=== PATIENT | female | born 1975 | race Caucasian/White ===

== ENCOUNTER 2020-12-30 22:45 | Emergency (ER) | payer SELFPAY ==
[~2020-12-30] VITALS: Ht 175.3 cm; Wt 74.9 kg
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
[2020-12-30] MEDS ORDERED: IV RINGERS SOLUTION,LACTATED 1,000 ML IV SCH (23:30)
--- NOTE | 2020-12-30 23:44 | EKG ---
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
[2020-12-31 00:08] LABS: BASO % 1 % (0-3); EOS % 0 % (0-3); HEMATOCRIT 36.2 % (36.0-47.0); HEMOGLOBIN 12.1 g/dL (12.0-15.5); LYMPH # 1.1 x10^3/uL (1.0-4.8); LYMPH % 15 % (24-48); MEAN CORPUSCULAR HEMOGLOBIN 32 pg (25-35); MEAN CORPUSCULAR HGB CONC 33 g/dL (31-37); MEAN CORPUSCULAR VOLUME 96 fL (79-100); MONO # 0.7 x10^3/uL (0.0-1.1); MONO % 9 % (0-9); NEUT # 5.4 x10^3uL (1.8-7.7); NEUT % 75 % (31-73); PLATELET COUNT 334 x10^3/uL (140-400); RED BLOOD COUNT 3.77 x10^6/uL (3.50-5.40); WHITE BLOOD COUNT 7.3 x10^3/uL (4.0-11.0)
[2020-12-31 00:17] LABS: CALCIUM 9.2 mg/dL (8.5-10.1); CREATININE 1.4 mg/dL (0.6-1.0); GFR 40.7; POTASSIUM 3.4 mmol/L (3.5-5.1)
[2020-12-31 00:30] LABS: ALBUMIN 3.6 g/dL (3.4-5.0); DIRECT BILIRUBIN 0.6 mg/dL (0.0-0.2); MAGNESIUM 2.3 mg/dL (1.8-2.4); TOTAL BILIRUBIN 1.1 mg/dL (0.2-1.0); TOTAL PROTEIN 7.3 g/dL (6.4-8.2)
--- NOTE | 2020-12-31 01:15 | RAD ---
CT HEAD INDICATION: Altered mental status COMPARISON: None Available. Exposure: One or more of the following individualized dose reduction techniques were utilized for thi s examination: 1. Automated exposure control 2. Adjustment of the mA and/or kV according to patient size 3. Use of iterative reconstruction technique TECHNIQUE: 5 mm contiguous axial images were obtained from the skull base to the vertex in both bone and soft tissue algorithm. FINDINGS: No abnormal attenuation within the brain parenchyma. No evidence of acute intracranial hemorrhage. No extra-axial fluid collections. No mass effect or midline shift. Ventricular size is appropriate. Basal cisterns are patent. No fractures identified.Lentz-white differentiation is preserved.Globes and orbits are within normal l imits. Paranasal sinuses and mastoid air cells are clear. IMPRESSION: No acute intracranial findings. Electronically signed by: Ortiz Garcia MD (12/31/2020 1:13 AM) [id number]
[2020-12-31] MEDS ORDERED: CONTRAST GIVEN. MC PRN (01:45)
[2020-12-31] MEDS ORDERED: IOHEXOL 300 MG/ML 75 ML VIAL. IV ONE (02:00)
[2020-12-31 02:09] LABS: AMPHETAMINE/METHAMPHETAMINE NEG (NEG); BARBITURATES NEG (NEG); BENZODIAZEPINES NEG (NEG); CANNABINOIDS NEG (NEG); COCAINE NEG (NEG); METHADONE NEG (NEG); OPIATES NEG (NEG); PHENCYCLIDINE NEG (NEG)
[2020-12-31 02:14] LABS: CLARITY,URINE CLEAR; COLOR,URINE YELLOW
[2020-12-31 02:15] LABS: BILIRUBIN,URINE LARGE (NEG); GLUCOSE,URINE NEG (NEG)
[2020-12-31 02:16] LABS: BACTERIA,URINE FEW /HPF (0-FEW); NITRITE,URINE NEG (NEG); RBC,URINE 0 /HPF (0-2); SQUAMOUS EPITHELIAL CELL,UR FEW /LPF; WAXY CASTS,URINE OCC /HPF
[2020-12-31 02:18] LABS: YEAST,URINE PRESENT /HPF
--- NOTE | 2020-12-31 02:49 | RAD ---
Examination: CT chest abdomen pelvis with IV contrast HISTORY: History of contusion to the back, abdominal pain COMPARISON: None available TECHNIQUE: Axial CT images of the chest abdomen pelvis with IV contrast. Reduced dose IV contrast was used. Coronal and sagittal reformats are performed Exposure: One or more of the following individualized dose reduction techniques were utilized for thi s examination: 1. Automated exposure control 2. Adjustment of the mA and/or kV according to patient size 3. Use of iterative reconstruction technique. FINDINGS: The visualized thyroid gland grossly appears unremarkable. Central airways are patent. The heart size grossly appears unremarkable. Neurologically significant mediastinal lymphadenopathy. Mild bibasilar lung atelectasis. The liver, spleen, adrenals grossly appears unremarkable. The gallbladder is mildl y distended. The stomach is mildly distended. The small bowel is nondilated. Feces and gas noted in t he colon. Urinary bladder is mildly distended. The bilateral kidneys enhance symmetrically. There is moderate fluid density measuring 9.6 cm in CC dimension measuring 63 Hounsfield units with s urrounding fat stranding in the right lower back subcutaneous region likely hematoma. Mild degenerati ve changes thoracic and lumbar spine. IMPRESSION: 1. Moderate fluid density measuring 9.6 cm in CC dimension with surrounding fat stranding in the righ t lower back posteriorly subcutaneous region likely hematoma. Electronically signed by: Ortiz Garcia MD (12/31/2020 2:47 AM) [id number]
[2020-12-31 03:06] VITALS: BP 125/82
--- NOTE | 2020-12-31 03:13 | RAD ---
EXAM: CHEST 1 VIEW History: Tachycardia COMPARISON: None available. TECHNIQUE: Single portable radiograph of the chest FINDINGS: The cardiac silhouette is unremarkable. The lungs are clear bilaterally. The costophrenic sulci are clear and well demarcated. IMPRESSION: No radiographic evidence of an acute cardiopulmonary process. Electronically signed by: Ortiz Garcia MD (12/31/2020 3:11 AM) [id number]
== END 2020-12-31 06:54 | disposition home or self-care (01) ==
LOC: ER 22:45
DX: S80.02XA Contusion of left knee, initial encounter (principal); S80.01XA Contusion of right knee, initial encounter; S30.0XXA Contusion of lower back and pelvis, initial encounter; R41.82 Altered mental status, unspecified; R79.89 Other specified abnormal findings of blood chemistry; F41.9 Anxiety disorder, unspecified; F31.9 Bipolar disorder, unspecified; F20.9 Schizophrenia, unspecified; F19.10 Other psychoactive substance abuse, uncomplicated; F17.210 Nicotine dependence, cigarettes, uncomplicated; X58.XXXA Exposure to other specified factors, initial encounter; Y93.89 Activity, other specified; Y92.89 Other specified places as the place of occurrence of the external cause; Y99.8 Other external cause status
CPT/HCPCS: 36415; 70450; 71045; 71260; 74177; 80048; 80076; 80307; 81001; 82550; 83735; 83880; 84443; 84484; 84702; 85025; 85610; 85730; 93005; 96361; 96374; 99285; G0480; J2060; J7120; Q9967

== ENCOUNTER 2021-01-09 12:28 | Emergency (ER) | payer SELFPAY ==
[~2021-01-09] VITALS: Ht 167.6 cm; Wt 70.0 kg
[2021-01-09] MEDS ORDERED: NEOMY/BACITR/POLYMYXIN OINT PACKET. TP ONE (13:00)
[2021-01-09] MEDS ORDERED: LIDOCAINE 1%/EPI 1:100,000 20 ML VIAL. IJ ONE (13:00)
[2021-01-09] MEDS ORDERED: KETOROLAC 30 MG/ML VIAL. IM ONE (13:15)
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
[2021-01-09 14:20] VITALS: BP 138/72
== END 2021-01-09 14:20 | disposition home or self-care (01) ==
LOC: EEVIPCON 12:28 → ER 12:28
DX: S01.01XA Laceration without foreign body of scalp, initial encounter (principal); S05.12XA Contusion of eyeball and orbital tissues, left eye, initial encounter; S60.511A Abrasion of right hand, initial encounter; S80.212A Abrasion, left knee, initial encounter; F41.9 Anxiety disorder, unspecified; F31.9 Bipolar disorder, unspecified; F17.210 Nicotine dependence, cigarettes, uncomplicated; Y08.89XA Assault by other specified means, initial encounter; Y93.89 Activity, other specified; Y92.89 Other specified places as the place of occurrence of the external cause; Y99.8 Other external cause status
CPT/HCPCS: 12001; 70450; 72125; 96372; 99284; J1885

== ENCOUNTER 2021-01-10 20:18 | Emergency (ER) | payer SELFPAY ==
[~2021-01-10] VITALS: Ht 167.6 cm; Wt 70.0 kg
[2021-01-10 21:22] LABS: BASO # 0.1 x10^3/uL (0.0-0.2); BASO % 1 % (0-3); EOS # 0.1 x10^3/uL (0.0-0.7); EOS % 1 % (0-3); HEMATOCRIT 35.2 % (36.0-47.0); HEMOGLOBIN 11.7 g/dL (12.0-15.5); LYMPH # 1.5 x10^3/uL (1.0-4.8); LYMPH % 15 % (24-48); MEAN CORPUSCULAR HEMOGLOBIN 32 pg (25-35); MEAN CORPUSCULAR HGB CONC 33 g/dL (31-37); MEAN CORPUSCULAR VOLUME 95 fL (79-100); MONO # 0.9 x10^3/uL (0.0-1.1); MONO % 9 % (0-9); NEUT # 7.3 x10^3uL (1.8-7.7); NEUT % 74 % (31-73); PLATELET COUNT 461 x10^3/uL (140-400); RED CELL DISTRIBUTION WIDTH 16.8 % (11.5-14.5); WHITE BLOOD COUNT 9.9 x10^3/uL (4.0-11.0)
[2021-01-10] MEDS ORDERED: IBUPROFEN 400 MG TABLET. PO ONE (21:30)
[2021-01-10 21:33] LABS: CALCIUM 8.8 mg/dL (8.5-10.1); CREATININE 0.8 mg/dL (0.6-1.0); GFR 77.6; POTASSIUM 3.9 mmol/L (3.5-5.1)
[2021-01-10 21:36] LABS: BARBITURATES NEG (NEG); BENZODIAZEPINES NEG (NEG); CANNABINOIDS POS (NEG); COCAINE NEG (NEG); METHADONE NEG (NEG); OPIATES NEG (NEG); PHENCYCLIDINE NEG (NEG)
[2021-01-10 21:41] LABS: AMPHETAMINE/METHAMPHETAMINE NEG (NEG)
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
--- NOTE | 2021-01-10 21:46 | RAD ---
Exam: Skull radiographs 3 views INDICATION: Mantilla, CAD well and lateral view of the skull TECHNIQUE: None Comparisons: CT yesterday FINDINGS:Subtle curvilinear lucency noted in the left frontal region. The paranasal sinuses and masto id air cells are well-pneumatized. Skin brant overlying the right parietal region are noted. IMPRESSION: Subtle curvilinear lucency at the left frontal region a discrete correlate is not identified on the r ecent CT possible etiologies include prominent vasculature however difficult to exclude previously oc cult fracture. CT of the head and face is recommended for further evaluation. Electronically signed by: Leroy Mcconnell MD (01/10/2021 9:43 PM) MARIA INES
[2021-01-10 22:45] LABS: BILIRUBIN,URINE SMALL (NEG); CLARITY,URINE CLEAR; COLOR,URINE YELLOW; GLUCOSE,URINE NEG (NEG); NITRITE,URINE NEG (NEG); UROBILINOGEN,URINE 0.2 mg/dL (0.2 mg/dL)
[2021-01-10 22:46] LABS: BACTERIA,URINE FEW /HPF (0-FEW); SQUAMOUS EPITHELIAL CELL,UR FEW /LPF
[2021-01-11] MEDS ORDERED: HYDROcodone/APAP 5/325MG 1 TAB TABLET PO ONE (07:30)
[2021-01-11] MEDS ORDERED: LORazepam 1 MG TABLET PO ONE (08:45)
[2021-01-11 10:27] VITALS: BP 150/69
== END 2021-01-11 10:28 | disposition home or self-care (01) ==
LOC: ER 20:18
DX: S00.531A Contusion of lip, initial encounter (principal); S80.212A Abrasion, left knee, initial encounter; S80.211A Abrasion, right knee, initial encounter; F19.921 Other psychoactive substance use, unspecified with intoxication with delirium; H11.32 Conjunctival hemorrhage, left eye; F41.9 Anxiety disorder, unspecified; F31.9 Bipolar disorder, unspecified; F17.210 Nicotine dependence, cigarettes, uncomplicated; Z20.822 Contact with and (suspected) exposure to COVID-19; Y08.89XA Assault by other specified means, initial encounter; Y93.89 Activity, other specified; Y92.89 Other specified places as the place of occurrence of the external cause; Y99.8 Other external cause status
CPT/HCPCS: 36415; 70150; 80048; 80307; 81001; 85025; 87426; 99284; C9803; U0003

== ENCOUNTER 2021-01-15 11:30 | Emergency (ER) | payer SELFPAY ==
[~2021-01-15] VITALS: Ht 167.6 cm; Wt 70.0 kg
[2021-01-15 11:30] VITALS: BP 127/80
[2021-01-15] MEDS ORDERED: IBUPROFEN 600 MG TABLET. PO ONE (12:30)
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
== END 2021-01-15 12:50 | disposition home or self-care (01) ==
LOC: ER 11:30
DX: Z00.00 Encounter for general adult medical examination without abnormal findings (principal); R07.81 Pleurodynia; F41.9 Anxiety disorder, unspecified; F31.9 Bipolar disorder, unspecified; F17.210 Nicotine dependence, cigarettes, uncomplicated
CPT/HCPCS: 99283